=== PATIENT | female | born 1965 | race Caucasian/White ===

== ENCOUNTER 2025-04-09 07:31 | Outpatient (CLI) | payer BC | END 2025-04-09 07:32 | disposition home or self-care (01) | LOC: ULT 07:31 | PROVIDERS: ATTEND Internal Medicine | DX: K76.0 Fatty (change of) liver, not elsewhere classified (principal); K76.89 Other specified diseases of liver | CPT/HCPCS: 76700; 93976 ==

== ENCOUNTER 2025-04-23 08:20 | Outpatient (CLI) | payer BC | END 2025-04-23 08:21 | disposition home or self-care (01) | LOC: NM 08:20 | PROVIDERS: ATTEND Otolaryngology | DX: E21.3 Hyperparathyroidism, unspecified (principal) | CPT/HCPCS: 78072; A9500 ==